=== PATIENT | male | born 1980 | race Two or more races ===

== ENCOUNTER 2017-06-23 17:23 | Emergency (ER) | payer SELFPAY ==
[~2017-06-23] VITALS: Ht 180.3 cm; Wt 99.8 kg
[2017-06-23] MEDS ORDERED: LORAZEPAM 1 MG TABLET ONE (17:35)
--- NOTE | 2017-06-23 17:38 | NUR ---
anxiety meds given as ordered by Estee; Ativan 2 mg SL x 1 NOW
[2017-06-23 17:49] LABS: BASOPHILS % (AUTO) 0.5 % (0.0-2.0); EOSINOPHILS # (AUTO) 0.1 /CMM (0.0-0.7); EOSINOPHILS % (AUTO) 0.6 % (0.0-6.0); HEMATOCRIT 44 % (39-51); HEMOGLOBIN 14.8 g/dL (13.5-17.5); LYMPHOCYTES # (AUTO) 2.1 /CMM (0.8-4.8); LYMPHOCYTES % (AUTO) 23.3 % (20.0-44.0); MEAN CORPUSCULAR HEMOGLOBIN 28 PG (26.0-33.0); MEAN CORPUSCULAR HGB CONC 34 g/dl (31.0-36.0); MEAN CORPUSCULAR VOLUME 83 fL (80-96); MONOCYTES # (AUTO) 0.5 /CMM (0.1-1.30); MONOCYTES % (AUTO) 5.9 % (2.0-12.0); NEUTROPHILS # (AUTO) 6.5 /CMM (1.8-8.9); NEUTROPHILS % (AUTO) 69.7 % (43.0-81.0); PLATELET COUNT (AUTO) 326 /CMM (150-450); RDW COEFFICIENT OF VARIATION 11.9 (11.5-15.0); RED BLOOD CELL COUNT(AUTO) 5.31 MIL/uL (4.5-6.0); WHITE BLOOD COUNT (AUTO) 9.2 K/uL (4.3-11.0)
--- NOTE | 2017-06-23 17:50 | NUR ---
refused CT scan; states " I dont have any insurance"
--- NOTE | 2017-06-23 17:57 | NUR ---
Estee GASTELUMP - at bedside
[2017-06-23 17:58] LABS: CALCIUM, SERUM 8.8 mg/dL (8.5-10.1); CARBON DIOXIDE 25 mmol/L (21-32); CHLORIDE 100 mmol/L (98-107); GLUCOSE 164 mg/dL (74-106); POTASSIUM 3.5 mmol/L (3.5-5.1); SODIUM SERUM 135 mmol/L (136-145); UREA NITROGEN, BLOOD 12 mg/dL (7-18)
[2017-06-23 17:59] LABS: ALCOHOL, BLOOD < 3 mg/dL (0-0)
[2017-06-23] MEDS ORDERED: LORAZEPAM 1 MG TABLET PO ONE (18:00)
[2017-06-23 18:06] LABS: INR 0.96 (0.87-1.13)
--- NOTE | 2017-06-23 18:54 | NUR ---
Patient does not wish to proceed with medical care recommended by LYRIC Fontanez. Patient given information related to possible complications, up to and including , which could occur as a result of leaving the hospital at this time. Patient verbalizes understanding of risks involved due to leaving against medical advice. Patient has signed AMA form.
[2017-06-23 18:55] VITALS: BP 135/98
== END 2017-06-23 18:56 | disposition left against medical advice (07) ==
LOC: ER 17:24
DX: R20.2 Paresthesia of skin (principal); F41.9 Anxiety disorder, unspecified; F90.9 Attention-deficit hyperactivity disorder, unspecified type
CPT/HCPCS: 36415; 80048; 85025; 85730; 93005; 99284; 99406; A4606; G0480; Z7610